=== PATIENT | female | born 1960 | race Caucasian/White ===

== ENCOUNTER 2017-04-20 09:12 | Day surgery (SDC) ==
[2017-04-20] MEDS ORDERED: LIDOCAINE 1% 20 ML MDV ID STA (10:08)
[2017-04-20] MEDS ORDERED: DIPRIVAN 20 ML VIAL IVP ONE (11:53)
[2017-04-20] MEDS ORDERED: VERSED ONE (11:53)
[2017-04-20 15:26] VITALS: BP 105/68; TEMP 98.6
--- NOTE | 2017-04-21 09:29 | OP ---
INDICATIONS FOR PROCEDURE: 56 year old female presents for colonoscopy exam. She has a history of adenomatous polyps with her last colonoscopy a little over three years ago. There is a family history of colon polyps involving her mother in the 70's and her brother had polyps in his 40's. MEDICATIONS: SEE ANESTHESIA NOTES. PROCEDURE: COLONOSCOPY, SNARE POLYPECTOMY. REPORT: The risks, benefits, alternatives and limitations were discussed in detail with the patient. Informed consent was obtained. After adequate sedation was achieved, a digital rectal exam revealed good tone, no masses. The colonoscope was introduced into the rectum and advanced under direct visual guidance to the cecum. The cecum was identified by the appendiceal orifice and IC valve. I then slowly withdrew the scope in the circumferential manner and examined the mucosa quite carefully. I looked on the proximal and distal sides of folds and flexures as best as possible. I was able to retroflex the scope in the right colon and the left colon to increase visualization. In the proximal transverse colon and the distal transverse colon I encountered two polyps and these were diminutive in size about 4mm in size. Both were removed and destroyed using the hot snare polypectomy. In the rectum there is a similar 4mm diminutive polyp that was destroyed using a hot snare. No other abnormalities were noted including on retroflex view of the anal canal. The prep was good and the withdraw time was 9 minutes and 10 seconds. The patient tolerated the procedure well with stable vital signs and pulse oximetry throughout. IMPRESSION: 1. Three diminutive polyps destroyed as above RECOMMENDATIONS: 1. High fiber diet 2. Office visit as needed 3. Recommend surveillance colonoscopy exam again in 5 years or sooner if there are any signs or symptoms to indicate otherwise. CC: Javier GANDHI
== END 2017-04-20 13:00 | disposition home or self-care (01) ==
LOC: SURG 09:12
PROVIDERS: ATTEND Internal Medicine Gastroenterology
DX: Z09 Encounter for follow-up examination after completed treatment for conditions other than malignant neoplasm (principal); Z86.010 Personal history of colon polyps; K63.5 Polyp of colon; Z83.71 Family history of colonic polyps